=== PATIENT | female | born 1950 | race Caucasian/White ===

== ENCOUNTER 2017-12-07 11:29 | Outpatient (RCR) | payer MEDICARE ==
[~2017-12-07 11:29] MED LIST: ACET-2469 PO; ACHD5005 PO; MECL12.579 PO
== END 2017-12-07 12:07 | disposition home or self-care (01) ==
PROVIDERS: ATTEND Physician Assistant
DX: M48.061 Spinal stenosis, lumbar region without neurogenic claudication (principal); M54.16 Radiculopathy, lumbar region

== ENCOUNTER → 2018-06-21 | Outpatient (CLI) | payer MEDICARE ==
--- NOTE | 2018-06-21 15:29 | Diagnostic Imaging Report ---
INDICATION: Screening. COMPARISON: Prior examination from 01/06/2015 back through 09/22/2011. EXAMINATION: Bilateral digital screening mammogram with CAD. 3D tomographic images were obtained and reviewed. The current study was also evaluated with a Computer Aided Detection (CAD) system. FINDINGS: There are scattered fibroglandular densities, bilaterally. There are a few benign type calcifications and vascular calcifications. There is no dominant mass, spiculated lesion or suspicious calcification identified. There are a few benign lymph nodes in the axilla. Skin and nipples are unremarkable. IMPRESSION: Category 2, benign. ACR BI-RADS Category 2: Benign findings. Result letter will be mailed to the patient. Note: At least 10% of breast cancer is not imaged by mammography. Dictated on workstation # [id number]
== END ==
LOC: RAD 09:44
PROVIDERS: ATTEND Family Medicine
DX: Z12.31 Encounter for screening mammogram for malignant neoplasm of breast (principal)
CPT/HCPCS: 77067

== ENCOUNTER → 2018-07-12 | Outpatient (CLI) | payer MEDICARE | LOC: PREOP 05:35 | PROVIDERS: ATTEND Surgery | DX: Z01.818 Encounter for other preprocedural examination (principal) ==

== ENCOUNTER → 2019-07-07 | Outpatient (CLI) | payer MEDICARE ==
[~2019-07-07] MED LIST changes: -ACET-2469 PO; +ACET-2715 PO
--- NOTE | 2019-07-07 08:53 | Diagnostic Imaging Report ---
INDICATION: Screening. TECHNIQUE: The current study was also evaluated with a Computer Aided Detection (CAD) system. 3D Tomographic imaging was also performed. COMPARISON: 06/21/2018 and 01/06/2015. FINDINGS: There are scattered fibroglandular densities bilaterally. There are vascular and benign type calcifications. There is no new dominant mass, spiculated lesion, or suspicious calcification identified. The skin, nipples, and axillae are unremarkable. IMPRESSION: Benign findings. ACR BI-RADS Category 2: Benign findings. Result letter will be mailed to the patient. Note: At least 10% of breast cancer is not imaged by mammography. Dictated by: Dictated on workstation # [id number]
== END ==
LOC: RAD 07:50
PROVIDERS: ATTEND Family Medicine
DX: Z12.31 Encounter for screening mammogram for malignant neoplasm of breast (principal)
CPT/HCPCS: 77067

== ENCOUNTER 2019-07-21 05:41 | Outpatient (CLI) | payer MEDICARE ==
[~2019-07-21] VITALS: Ht 149 cm; Wt 77.2 kg
[~2019-07-21 05:41] MED LIST changes: +MECL-172 PO; -MECL12.579 PO
[2019-07-21] MEDS ORDERED: CHOL200078 PO (12:18)
== END 2019-07-21 12:21 | disposition home or self-care (01) ==
LOC: PREOP 05:41
PROVIDERS: ATTEND Surgery
DX: Z01.818 Encounter for other preprocedural examination (principal)

== ENCOUNTER → 2020-07-09 | Outpatient (CLI) | payer MEDICARE ==
[~2020-07-09] MED LIST changes: -ACET-2715 PO; +ACET-3075 PO; +CHOL200078 PO; -MECL-172 PO; +MECL-173 PO
--- NOTE | 2020-07-09 11:49 | Diagnostic Imaging Report ---
INDICATION: Routine screening. COMPARISON is made with prior mammograms from 07/07/2019 and 06/21/2018. 2-D and 3-D bilateral screening mammography was performed with CAD. Scattered fibroglandular densities are identified bilaterally. There are benign nodules bilaterally which appears stable. No new mass or malignant appearing microcalcifications are seen. There are benign parenchymal and vascular calcifications bilaterally. The axillae are unremarkable. IMPRESSION: BI-RADS Category 2. No mammographic features suspicious for malignancy are identified. Dictated by: Dictated on workstation # [id number]
== END ==
LOC: RAD 10:18
PROVIDERS: ATTEND Family Medicine
DX: Z12.31 Encounter for screening mammogram for malignant neoplasm of breast (principal)
CPT/HCPCS: 77063; 77067

== ENCOUNTER → 2021-03-11 | Outpatient (CLI) | payer MEDICARE ==
[~2021-03-11] MED LIST changes: -MECL-173 PO; +MECL-215 PO
--- NOTE | 2021-03-11 11:21 | Diagnostic Imaging Report ---
Indication: Right arm pain and injury. TIME OF EXAM: 10:48 AM 2 views of the right forearm were obtained. Alignment at the elbow and wrist is normal. The radius and ulna are intact. No fractures are seen. IMPRESSION: No acute bony abnormality is detected. Dictated by: Dictated on workstation # [id number]
--- NOTE | 2021-03-11 11:22 | Diagnostic Imaging Report ---
INDICATION: Right wrist injury. TIME OF EXAM: 10:50 AM 3 views of the right wrist were obtained. The distal radius and ulna are intact. Carpus is intact. No fractures are identified. There are some degenerative changes at the triscaphe joint. IMPRESSION: No acute bony abnormality is detected. Dictated by: Dictated on workstation # [id number]
== END ==
LOC: RAD 10:28
PROVIDERS: ATTEND Family Medicine
DX: S69.91XA Unspecified injury of right wrist, hand and finger(s), initial encounter (principal); X58.XXXA Exposure to other specified factors, initial encounter
CPT/HCPCS: 73090; 73110

== ENCOUNTER → 2022-09-08 | Outpatient (CLI) | payer MEDICARE ==
--- NOTE | 2022-09-08 14:05 | Diagnostic Imaging Report ---
Indication: Routine screening. Comparison is made with prior mammograms from 07/09/2020 and 07/07/2019. 2-D and 3-D bilateral screening mammography was performed with CAD. Scattered fibroglandular densities are identified bilaterally. There are scattered benign calcifications bilaterally. Bilateral breast nodules appear stable. No new mass or malignant-appearing microcalcifications are seen. Axillae are unremarkable. IMPRESSION: BI-RADS Category 2 No mammographic features suspicious for malignancy are identified. ACR BI-RADS Category 2: Benign findings. Result letter will be mailed to the patient. Note: At least 10% of breast cancer is not imaged by mammography. Dictated by: Dictated on workstation # [id number]
== END ==
LOC: CARD 09:14
PROVIDERS: ATTEND Family Medicine
DX: Z12.31 Encounter for screening mammogram for malignant neoplasm of breast (principal)
CPT/HCPCS: 77063; 77067; C8929; 93306